=== PATIENT | male | born 1995 | race Caucasian/White ===

== ENCOUNTER 2018-01-03 17:31 | Emergency (ER) | payer BC, MEDICAID, OTHER ==
[~2018-01-03] VITALS: Ht 185.4 cm; Wt 63.5 kg
[2018-01-03 17:31] VITALS: BP_SYST 146
--- NOTE | 2018-01-03 17:31 | NUR ---
Patient to ER bed 1 to gown for evaluation. Side rails up.
--- NOTE | 2018-01-03 17:35 | NUR ---
Patient to ER via EMS/[facility] for evaluation. Patient reports that he took 2 Ativan 0.5 mg today, patient denies SI/HI, patient reports that he does not wish to hurt himself. Per EMS/[facility] patient had been texting friend/girl friend that patient wanted to hurt himself and that he took more than 2 pills over the last 2 days. Patint being placed on hold by [facility]. Patient is awake, alert and oriented in no acute distress, vital signs stable, respirations even and unlabored, skin warm and dry to touch. Awaiting evaluation by ER MD, will continue to observe and assess. Patient has been changed into gown, and awaiting security to come and wand the patient.
--- NOTE | 2018-01-03 17:40 | NUR ---
Dr Miller at bedside to evaluate patient.
--- NOTE | 2018-01-03 17:45 | NUR ---
Patient remains under observation of hospital sitter.
--- NOTE | 2018-01-03 17:45 | NUR ---
BEST CAME TO DRAW BLOOD FROM HIM
--- NOTE | 2018-01-03 17:50 | NUR ---
Empty bottle of Lorazepam 0.5mg PO BID PRN. Date medication was filled 12/24/17, quantity of 60.
--- NOTE | 2018-01-03 18:00 | NUR ---
Assessment remains unchanged, patient under observation of hospital sitter.
[2018-01-03 18:05] LABS: BASOPHILS # (AUTO) 0.1 K/uL (0.0-0.2); BASOPHILS % (AUTO) 0.7 % (0.0-2.0); EOSINOPHILS % (AUTO) 0.2 % (0.0-4.0); HEMATOCRIT 45.8 % (36-54); HEMOGLOBIN 15.6 g/dL (14.0-18.0); LYMPHOCYTES # (AUTO) 0.9 K/uL (1.0-5.5); LYMPHOCYTES % (AUTO) 11.3 % (20.5-51.5); MEAN CORPUSCULAR HEMOGLOBIN 30 pg (27-31); MEAN CORPUSCULAR HGB CONC 34 % (32-36); MEAN CORPUSCULAR VOLUME 88 fL (79.0-98.0); MONOCYTES # (AUTO) 0.4 K/uL (0.0-1.0); MONOCYTES % (AUTO) 5.1 % (1.7-9.3); NEUTROPHILS # (AUTO) 6.6 K/uL (1.8-7.7); NEUTROPHILS % (AUTO) 82.7 % (40.0-70.0); PLATELET COUNT (AUTO) 217 K/uL (130-430); RED BLOOD CELL COUNT(AUTO) 5.22 MIL/uL (4.2-6.2); RED CELL DISTRIBUTION WIDTH 11.7 % (9.0-15.0)
--- NOTE | 2018-01-03 18:05 | NUR ---
Security at bedside to wand patient.
--- NOTE | 2018-01-03 18:10 | NUR ---
THE SCURITY CAME TO SCAN THE PT
[2018-01-03 18:13] LABS: ANION GAP 11 (5-15); CALCIUM 9.1 mg/dL (8.4-11.0); CHLORIDE 105 mmol/L (98-107); CREATININE 1.01 mg/dL (0.55-1.30); GLUCOSE 96 mg/dL (70-99); POTASSIUM 3.9 mmol/L (3.5-5.1); SODIUM SERUM 140 mmol/L (136-145); UREA NITROGEN, BLOOD 10 mg/dL (8-21)
--- NOTE | 2018-01-03 18:15 | NUR ---
Assessment remains unchanged. Patient under observation of hospital sitter.
--- NOTE | 2018-01-03 18:15 | NUR ---
Called Poison Control at [phone] and spoke with Theresa. Per recommendations: CPK, r/o aspirin and tylenol. Dr. Miller notified. Will continue to monitor patient.
--- NOTE | 2018-01-03 18:15 | NUR ---
PT HE START TO SAY BAD WORD
[2018-01-03 18:17] LABS: GFR AFRICAN AMERICAN 119 mL/min (>90)
[2018-01-03 18:19] LABS: ALANINE AMINOTRANSFERASE 17 U/L (12-78); ALBUMIN 4.3 g/dL (3.4-4.8); ASPARTATE AMINOTRANSFERASE 17 U/L (10-37); TOTAL BILIRUBIN 0.5 mg/dL (0.0-1.0)
[2018-01-03 18:20] LABS: ACETAMINOPHEN < 1 ug/mL (1-30); ALCOHOL, BLOOD < 3 mg/dL (<10)
--- NOTE | 2018-01-03 18:20 | NUR ---
Lethality Assessment Completed
--- NOTE | 2018-01-03 18:29 | NUR ---
FRANCISCO Beaulieu RN TOOK HIS VITAL SIGN AND THE SITTER BESIDE HIM AND THE CHARGE NURSE TRY TO TAKE TO HIM BUT HE START SAYING ALOT BAD WORD
--- NOTE | 2018-01-03 18:30 | NUR ---
Patient resting quietly in no acute distress with slow, even rspirations. Patient remains under observation of hospital sitter.
--- NOTE | 2018-01-03 18:35 | NUR ---
Patient's parents at bedside. Patient resting quietly in no acute distress.
--- NOTE | 2018-01-03 18:44 | NUR ---
FAMILY CAME TO TALK TO HIM BUT HE IS CRYING AND THE SITTER BESIDE HIM
--- NOTE | 2018-01-03 18:45 | NUR ---
Patient up to bathroom to provide urine sample which was sent to lab.
[2018-01-03 18:49] LABS: BILIRUBIN,URINE NEGATIVE (NEGATIVE); CLARITY/URINE CLEAR (CLEAR); COLOR,URINE YELLOW (YELLOW); GLUCOSE,URINE NEGATIVE (NEGATIVE); KETONES,URINE 2+ (NEGATIVE); LEUKOCYTE ESTERASE ,URINE TRACE (NEGATIVE); NITRITE, URINE NEGATIVE (NEGATIVE); PROTEIN URINE NEGATIVE (NEGATIVE); UROBILINOGEN,URINE 0.2 (0.2-1.0)
[2018-01-03 18:54] LABS: BLOOD, URINE TRACE (NEGATIVE)
--- NOTE | 2018-01-03 19:00 | NUR ---
HIS MOM WITH HIM HE IS CRYING HE WANT GO HOME WITH HER
[2018-01-03 19:03] LABS: BACTERIA,URINE FEW /HPF (None Seen); RBC,URINE 0-3 /HPF (0-3); WBC,URINE 0-3 /HPF (0-3)
--- NOTE | 2018-01-03 19:03 | NUR ---
PT SEEN IN BED AWAKE, ALERT, CRYING. MOTHER IS AT BEDSIDE. NO SIGNS OF DISTRESS, WILL CONTINUE TO OBSERVE.
[2018-01-03 19:04] LABS: MUCUS,URINE 3+ /LPF (None Seen)
[2018-01-03 19:10] LABS: BARBITURATE, URINE NEGATIVE (NEG <=200); BENZODIAZEPINE, URINE POSITIVE (NEG <=150); CANNABINOID, URINE POSITIVE (NEG <=50); COCAINE, URINE NEGATIVE (NEG <=150); METHAMPHETAMINES SCREEN,URINE NEGATIVE (NEG <=500); OPIATE, URINE NEGATIVE (NEG <=100); PHENCYCLIDINE SCREEN,URINE NEGATIVE (NEG <=25); URINE AMPHETAMINE NEGATIVE (NEG <=500); URINE METHADONE NEGATIVE (NEG <=200); URINE OXYCODONE SCREEN NEGATIVE (NEG <=100)
[2018-01-03 19:11] LABS: UR TRICYCLIC ANTIDEPRESSANTS NEGATIVE (NEG <=300); URINE PROPOXYPHENE SCREEN NEGATIVE (NEG <=300)
--- NOTE | 2018-01-03 19:18 | NUR ---
PT IN BED, AWAKE, ALERT. MOTHER AT BEDSIDE. NO SIGNS OF DISTRESS, WILL CONTINUE TO MONITOR.
--- NOTE | 2018-01-03 19:31 | NUR ---
PT IN BED, AWAKE ALERT. NO DISTRESS. MOTHER AT BEDSIDE. WILL CONTINUE TO OBSERVE.
--- NOTE | 2018-01-03 19:46 | NUR ---
PT IN BED, INCREASINGLY ANXIOUS OVER HAVING TO STAY IN ER. NO SIGNS OF INJURY OR DISTRESS. MOTHER IS AT BEDSIDE. WILL CONTINUE TO OBSERVE.
--- NOTE | 2018-01-03 20:05 | NUR ---
PT IN BED, AWAKE, ALERT. MOTHER AT BEDSIDE. NO SIGNS OF INJURY OR DISTRESS. WILL CONTINUE TO OBSERVE.
--- NOTE | 2018-01-03 20:16 | NUR ---
PT IN BED, AWAKE, ALERT. NO SIGNS OF INJURY OR DISTRESS. MOTHER AND FRIEND AT BEDSIDE. WILL CONTINUE TO OBSERVE
--- NOTE | 2018-01-03 20:29 | NUR ---
PT IN BED, RESTING. NO SIGNS OF DISTRESS OR INJURY. MOTHER AT BEDSIDE. WILL CONTINUE TO OBSERVE.
--- NOTE | 2018-01-03 20:51 | NUR ---
SPOKE TO AUBREY AT [facility]. REPORT GIVEN. PT GIVEN OK TO TRANSFER UNDER DR. DENNISON IN BUILDING I. TRANSPORTATION TO BE ARRANGED TO [facility] AT [address], [place] [address]
--- NOTE | 2018-01-03 20:59 | NUR ---
PT IN BED, SLEEPING. PARENTS AT BEDSIDE. NO SIGNS OF INJURY OR DISTRESS, LETHALITY ASSESSMENT COMPLETED. WILL CONTINUE TO OBSERVE.
--- NOTE | 2018-01-03 20:59 | NUR ---
Anjali from [facility] called for an update on pt's UDS. I advised her with appropriated information and told her that patient will be going to a psych facility. Anjali stated that she will be closing out the chart due to no further evaluation needed.
[2018-01-03 21:35] VITALS: BP_SYST 124
--- NOTE | 2018-01-03 21:35 | NUR ---
Patient to be transferred to [facility]. Is being transferred due to higher level of care. Receiving facility has accepting physician and available space. ER physician has signed transfer form. Patient or responsible constitution party has agreed to transfer and signed form. Patient belongings inventoried and will be sent with patient. Copy of nursing notes, lab reports, EKG, Physicians Orders and X-rays to be sent with patient. Report called to AUBREY DUONG at receiving facility. Receiving physician is DR. DENNISON. [facility] ambulance service is present for transfer.
== END 2018-01-03 21:35 ==
LOC: SED 17:31
DX: T65.91XA Toxic effect of unspecified substance, accidental (unintentional), initial encounter (principal); R45.851 Suicidal ideations; F32.9 Major depressive disorder, single episode, unspecified; F41.9 Anxiety disorder, unspecified; I10 Essential (primary) hypertension; Y92.89 Other specified places as the place of occurrence of the external cause
CPT/HCPCS: 36415; 80053; 80307; 81000; 82550; 85025; 87086; 99285; G0480; G0481; G0482